=== PATIENT | male | born 1970 | race Caucasian/White ===

== ENCOUNTER 2023-10-09 16:09 | Emergency (ER) | payer OTHER, SELFPAY ==
[2023-10-09 16:09] VITALS: BMI 37.4
[2023-10-09 16:15] VITALS: BP 189/107
[2023-10-09 16:44] LABS: % Basophils 1.2 % (0-2); % Eosinophils 2.7 % (0-6); % Immature Granulocytes 0.2 % (0-0.5); % Lymphocytes 27.1 % (20.5-51.1); % Monocytes 10.9 % (1.7-9.3); % Neutrophils 57.9 % (42.2-75.2); Absolute Basophils 0.1 10^3/uL (0-0.2); Absolute Eosinophils 0.2 10^3/uL (0-0.7); Absolute Lymphocytes 2.2 10^3/uL (1.2-3.4); Absolute Monocytes 0.9 10^3/uL (0.1-0.6); Absolute Neutrophils 4.6 10^3/uL (1.4-6.5); Hematocrit 50.1 % (39.0-52.0); Hemoglobin 16.9 g/dL (13.0-18.0); Mean Corp Hgb Conc. 33.7 g/dL (33.0-37.0); Mean Corpuscular Hgb 31.5 pg (27.0-31.0); Mean Corpuscular Volume 93.3 fL (80.0-94.0); Mean Platelet Volume 9.5 fL (7.4-10.4); Nucleated Red Blood Cells % 0 % (-); Platelet Count 268 10^3/uL (130-400); Red Blood Cell Count 5.37 10^6/uL (4.70-6.10); Red Cell Dist. Width 12.3 % (11.5-14.5)
[2023-10-09 16:55] LABS: Lactic Acid 1.1 mmol/L (0.7-2.0)
[2023-10-09 16:56] LABS: ALT (SGPT) 25 U/L (0-50); AST (SGOT) 30 U/L (17-59); Albumin 4.2 g/dl (3.5-5.0); Alkaline Phosphatase 95 U/L (38-126); Blood Urea Nitrogen 19 mg/dl (9-20); Calcium 9.5 mg/dl (8.4-10.2); Carbon Dioxide 29 mmol/L (22-30); Chloride 105 mmol/L (98-107); Glucose 150 mg/dl (70-99); Potassium 4.7 mmol/L (3.5-5.1); Sodium 142 mmol/L (135-145); Total Bilirubin 0.6 mg/dl (0.2-1.3); Total Protein 7.4 g/dl (6.3-8.2); eGFR > 60.00
[2023-10-09 18:32] VITALS: BP 178/86
--- NOTE | 2023-10-09 20:06 | ED.SKININJ ---
HPI-Injury
General
Chief Complaint: Skin Problem
Source: patient
Exam Limitations: none
Time Seen by Provider: 10/09/23 18:29
Nursing documentation reviewed up to this point in time: agreed with
History of Present Illness-Injury
Is this injury a work related problem?: No
Is pt an associate of [facility]?: No
Initial Injury comments:
Patient to ED wt complaint of pain, redness, swelling to his foot. States he noticed a blister on the bottom of his foot 1 week ago. This past monday he noticed that blister had opened. Since then her reports increasing redness and swelling.
Denies fever/chills. Brought self to ED for eval.
Past History
Past History
ED Past Medical History: GERD and IDDM
ED Past Surgical History: None
Social History
Tobacco: Smoker (occasional)
Alcohol: None
Drug: None
Review of Systems
Review of Systems
Allergies reviewed?: Yes
All Other Systems: ROS reviewed and negative except as documented in HPI and ROS
Constitutional: Reports no symptoms
Musculoskeletal: Reports no symptoms
Skin: Reports other (1cm ulceration plantar surface right foot 5th MT head)
Neurological: Reports no symptoms
Psychiatric: Reports no symptoms
Skin Exam
other
Other:
1cm ulceration right plantar foot at head of 5th MT. No drainage. Redness and swelling to right foot.
Phy Exam
General Physical Exam
General Presentation: well appearing and no apparent distress
General age: appears stated age
General Skin: warm and dry
General Habitus: normal
General Mental: alert
Musculoskeletal Exam
Musculoskeletal Exam: full ROM and neuro vasc intact
Skin Exam
Skin Exam: warm/dry and other (Diabetic foot ulceration plantar surface right foot at 5th MT head. Wound culture sent.)
Psychiatric Exam
Psychiatric Exam: normal mood/affect
Course
Orders/Labs/Results
Orders:
Orders
10/09/23 16:32
Complete Blood Count/With Diff Urgent
Comprehensive Metabolic Panel Urgent
Lactic Acid Urgent
Blood Culture Urgent
NAHID Source: Blood/Venous
Specimen Description:
10/09/23 18:38
Foot, Right 3 View [CR Foot - Right Min 3 Views] Urgent
Comment:
Reason For Exam: cellulitis, plantar ulcer
10/09/23 20:01
CeFAZolin 1 GRAM [Ancef] 1 gram in 5 ml IV NOW
10/09/23 20:05
Wound Culture [Wound/Abscess/Other Culture] Urgent
NAHID Source: Foot
Specimen Description: Right
Abnormal Lab Results
10/09/23
16:32
MCH 31.5 H pg
(27.0-31.0)
Absolute Monos (auto) 0.9 H 10^3/uL
(0.1-0.6)
Monocytes % 10.9 H %
(1.7-9.3)
Glucose 150 H mg/dl
(70-99)
10/09/23 16:32
10/09/23 16:32
Vital Signs
Initial and Last Documented VS:
Initial Vital Signs
Temp Pulse Resp BP Pulse Ox
98.3 F 92 18 189/107 98
10/09/23 16:15 10/09/23 16:15 10/09/23 16:15 10/09/23 16:15 10/09/23 16:15
Last Documented Vital Signs
Temp Pulse Resp BP Pulse Ox
98.3 F 88 16 178/86 97
10/09/23 16:15 10/09/23 18:32 10/09/23 18:32 10/09/23 18:32 10/09/23 18:32
*Radiology
Radiology exam reviewed: radiology read reviewed
*Pulse Oximetry
Patient hypoxic: no
*Critical Care Note
Total Time (30-74mins, 75-104mins- exclusive of procedures): Not Applicable
Update Note
Update Note:
[facility]. Given dose of ancef in dept. Will discharge home on Keflex 500mg qid. Request that he follow upwith the wound center He will call in the AM to schedule his
appointment. He was víctorvin instructions on s/s to return to ED and he is agreable to plan
ED Attending Note
-
Portions of this chart may have been created with voice recognition software.� Occasional wrong word or��sound alike� substitutions may have occurred due to the inherent limitations of voice recognition software.
Discharge Plan
Departure
Patient Disposition: Home (Routine Discharge)
Date of Disposition: 10/09/23
Time of Disposition: 20:01
Patient with high blood pressure during this ER visit?: No
Condition: Good
Covid-19: Not Applicable
Discharge Problem:
Cellulitis of foot, Diabetic foot ulcer
Instructions: Wound Care (DC), Cellulitis (Skin Infection), Adult (DC)
Prescriptions:
New
cephalexin 500 mg capsule
500 mg PO QID 7 Days Qty: 28 0RF
Referrals:
Wound Care Center [Outside] - Tomorrow
Arlen Bowser NP [Emergency Midlevel Provider] -
UNKNOWN - PT DOES,NOT KNOW [Family Provider] -
Activity Restrictions/Additional Instructions:
Return to the emergency department immediately for fever/chills, increasing pain/redness/swelling to your foot, or for any further concerns. Call the wound care center in the AM to schedule your appointment.
Interventions
Interventions:
*Risk Screen - Suicide Last Done: 10/09/23 16:15
*General Assessment Last Done: 10/09/23 16:15
*Neglect/Abuse Screening Last Done: 10/09/23 16:15
ED- Fall Risk Assessment Last Done: 10/09/23 18:31
*ED COVID-19 Vaccine History Last Done: 10/09/23 18:31
ED-Skin Assessment Last Done: 10/09/23 18:31
Discharge Date and Time
Print Language: CHINESE
[2023-10-09] MEDS: ANCEF 5 IV (20:26)
--- NOTE | 2023-10-09 20:40 | EDRN ---
Patient foot wrapped with instructions on re-wrap
== END 2023-10-09 20:41 | disposition home or self-care (01) ==
LOC: EMR 16:09
PROVIDERS: Emergency Medicine; EMERGENCY PHYSICIAN Student in an Organized Health Care Education/Training Program
DX: L03.115 Cellulitis of right lower limb (principal); E11.621 Type 2 diabetes mellitus with foot ulcer; M79.671 Pain in right foot; K21.9 Gastro-esophageal reflux disease without esophagitis; Z79.4 Long term (current) use of insulin; F17.200 Nicotine dependence, unspecified, uncomplicated; Z91.040 Latex allergy status
CPT/HCPCS: 99283; 73630; 80053; 83605; 85025; 87040; 87070; 87205

== ENCOUNTER → 2023-12-21 18:24 | Outpatient (REF) | payer OTHER, SELFPAY | LOC: RAD 18:24 | PROVIDERS: ATTENDING PHYSICIAN Radiology Diagnostic Radiology; FAMILY PHYSICIAN Family Medicine | DX: Z13.89 Encounter for screening for other disorder (principal) | CPT/HCPCS: 70030 ==

== ENCOUNTER → 2023-12-27 14:40 | Outpatient (REF) | payer OTHER, SELFPAY | LOC: MRI 3T 14:40 | PROVIDERS: ATTENDING PHYSICIAN Podiatrist Foot & Ankle Surgery; FAMILY PHYSICIAN Family Medicine | DX: L97.512 Non-pressure chronic ulcer of other part of right foot with fat layer exposed (principal); M79.671 Pain in right foot | CPT/HCPCS: 73718 ==

== ENCOUNTER 2024-01-01 12:45 | Inpatient (IN) | payer OTHER, SELFPAY ==
[2024-01-01] VITALS (7 sets, daily range): BP systolic 113–189; BP diastolic 72–109; BMI 38.7
--- NOTE | 2024-01-01 10:05 | ED.GENMED ---
History of Present Illness
General
Chief Complaint: Musculo-Skeletal Complaint
Time Seen by Provider: 01/01/24 09:52
History of Present Illness
History of Present Illness:
53-year-old male with history of insulin-dependent diabetes presents to the emergency department for evaluation of right foot cellulitis and abscess. He had an MRI ordered by his control panel builder (Daniela Amezcua at [facility] in [place])
last week showing a soft tissue abscess as well as osteomyelitis of the fifth metatarsal. He declined to come to the hospital last week because he 'wanted antibiotics in his system'. Denies any fevers or chills.
Past History
Past History
ED Past Medical History: GERD and IDDM
ED Past Surgical History: None
Social History
Tobacco: Smoker (occasional)
Alcohol: None
Drug: None
Review of Systems
Review of Systems
Allergies reviewed?: Yes
All Other Systems: ROS reviewed and negative except as documented in HPI and ROS
Phy Exam
Physical Exam
Physical Exam:
GEN: Well appearing, NAD, WDWN
HEENT: Oral mucosa moist, no scleral icterus
Cardiac: Regular rate
Lung: No respiratory distress, no tachypnea
MSK: Diffuse erythema and swelling of the right lateral foot at the head of the fifth metatarsal. There is a superficial ulceration of the plantar aspect of the fifth metatarsal head no discharge
Skin: Good color, no pallor or jaundice, no rashes
Neuro: AO x3, moves all extremities freely
Psych: Calm, cooperative
Course
Orders/Labs/Results
Orders:
Orders
01/01/24 10:05
Complete Blood Count/With Diff Urgent
01/01/24 10:12
Piperacillin/Tazo 3.375 Gram [Zosyn] 3.375 gram in 50 ml IV NOW
01/01/24 10:24
Vancomycin [Vancocin] 2,000 mg 0.9% Sodium Chloride 500 ml [Nss] 500 ml IV NOW
01/01/24 10:35
Comprehensive Metabolic Panel Urgent
01/01/24 10:37
CR Foot - Right Min 3 Views Urgent
Comment:
Reason For Exam: 5th MT osteo
Abnormal Lab Results
01/01/24 01/01/24
10:05 10:35
MCH 31.4 H pg
(27.0-31.0)
Absolute Monos (auto) 0.8 H 10^3/uL
(0.1-0.6)
Monocytes % 12.5 H %
(1.7-9.3)
Glucose 114 H mg/dl
(70-99)
01/01/24 10:05
01/01/24 10:35
Vital Signs
Initial and Last Documented VS:
Initial Vital Signs
Temp Pulse Resp BP Pulse Ox
98.0 F 98 16 177/109 98
01/01/24 09:41 01/01/24 09:41 01/01/24 09:41 01/01/24 09:41 01/01/24 09:41
Last Documented Vital Signs
Temp Pulse Resp BP Pulse Ox
98.0 F 98 16 177/109 98
01/01/24 09:41 01/01/24 09:41 01/01/24 10:00 01/01/24 09:41 01/01/24 09:41
MDM/Problems Addressed
MDM/Problems Addressed:
53-year-old male presents with osteomyelitis of the right foot confirmed on outpatient MRI. Discussed case with podiatry, will admit for operative intervention. Empiric antibiotics started
*Critical Care Note
Total Time (30-74mins, 75-104mins- exclusive of procedures): Not Applicable
ED Attending Note
-
Portions of this chart may have been created with voice recognition software.� Occasional wrong word or��sound alike� substitutions may have occurred due to the inherent limitations of voice recognition software.
Discharge Plan
Departure
Patient Disposition: Admit
Date of Disposition: 01/01/24
Time of Disposition: 10:31
Admit to: Med/Surg
Presentation/result/management discussed w/ accepting MD/DO: Hospitalist
Discharge Problem:
Acute osteomyelitis of metatarsal bone of right foot
Prescriptions:
No Action
clindamycin HCl 300 mg Capsule
300 mg PO Q6H
Patient Comments:
01/01/24: filled 12/29/23, to take for 14 days
Theragen Tablet
1 tab PO DAILY
sildenafil 100 mg Tablet
100 mg PO DAILYPRN PRN (Reason: ed)
insulin aspart U-100 [Novolog U-100 Insulin aspart] 100 unit/mL Solution
1 sliding scale dose SC DIRECTED
Patient Comments:
01/01/24: Patient uses own insulin pump
pantoprazole 40 mg Tablet,Delayed Release (Dr/Ec)
40 mg PO DAILY
naproxen sodium [Aleve] 220 mg Tablet
440 mg PO BIDPRN PRN (Reason: mild pain)
azelastine 137 mcg (0.1 %) [place],Non-Aerosol
1 spray INTRANASAL DAILY
Visbiome 112.5 billion cell Capsule
1 cap PO DAILY
cholecalciferol (vitamin D3) [Vitamin D3] 50 mcg (2,000 unit) Tablet
50 mcg PO DAILY
turmeric 400 mg Capsule
400 mg PO DAILY
Interventions
Interventions:
*Risk Screen - Suicide Last Done: 01/01/24 09:41
*General Assessment Last Done: 01/01/24 09:57
*Neglect/Abuse Screening Last Done: 01/01/24 09:41
*ED COVID-19 Vaccine History Last Done: 01/01/24 09:52
ED-Musculoskeletal Assessment Last Done: 01/01/24 09:57
Discharge Date and Time
Print Language: PAP[place]
[2024-01-01] MEDS: ZOSYN 50 IV ×3 (10:14→23:19)
[2024-01-01 10:22] LABS: % Basophils 1.2 % (0-2); % Eosinophils 3.9 % (0-6); % Immature Granulocytes 0.3 % (0-0.5); % Lymphocytes 31.6 % (20.5-51.1); % Monocytes 12.5 % (1.7-9.3); % Neutrophils 50.5 % (42.2-75.2); Absolute Basophils 0.1 10^3/uL (0-0.2); Absolute Eosinophils 0.3 10^3/uL (0-0.7); Absolute Lymphocytes 2.1 10^3/uL (1.2-3.4); Absolute Monocytes 0.8 10^3/uL (0.1-0.6); Absolute Neutrophils 3.4 10^3/uL (1.4-6.5); Hematocrit 44.4 % (39.0-52.0); Hemoglobin 15.4 g/dL (13.0-18.0); Mean Corp Hgb Conc. 34.7 g/dL (33.0-37.0); Mean Corpuscular Hgb 31.4 pg (27.0-31.0); Mean Corpuscular Volume 90.4 fL (80.0-94.0); Mean Platelet Volume 9.2 fL (7.4-10.4); Nucleated Red Blood Cells % 0 % (-); Platelet Count 315 10^3/uL (130-400); Red Blood Cell Count 4.91 10^6/uL (4.70-6.10); Red Cell Dist. Width 13.2 % (11.5-14.5); White Blood Cell Count 6.6 10^3/uL (4.8-10.8)
[2024-01-01 11:02] LABS: ALT (SGPT) 34 U/L (0-50); AST (SGOT) 38 U/L (17-59); Albumin 3.9 g/dl (3.5-5.0); Alkaline Phosphatase 90 U/L (38-126); Blood Urea Nitrogen 14 mg/dl (9-20); Calcium 9.2 mg/dl (8.4-10.2); Carbon Dioxide 24 mmol/L (22-30); Chloride 104 mmol/L (98-107); Glucose 114 mg/dl (70-99); Potassium 4.8 mmol/L (3.5-5.1); Sodium 141 mmol/L (135-145); Total Bilirubin 0.4 mg/dl (0.2-1.3); Total Protein 6.8 g/dl (6.3-8.2); eGFR > 60.00
[2024-01-01] MEDS: VANCOCIN 540 MG IV (11:40)
--- NOTE | 2024-01-01 12:30 | HPS.HSE ---
Family Physician
-
Family Physician: Jorge Renner
Chief Complaint
-
right foot ulcer
History of Present Illness
53-year-old male past medical history of diabetes, GERD presenting to the emergency room for right foot cellulitis and abscess. He has had a ulcer on the plantar surface of his right fifth toe since October 06. This has been causing him some
discomfort and swelling for which he has seen Dr. Daniela Amezcua at [facility] in [place] who has been performing local wound care. Due to the wound healing he had MRI performed last week showing soft tissue abscess as well as
osteomyelitis of the fifth metatarsal. He denies any fevers or chills. He denies any discharge. He was started on clindamycin a few days ago and the pain of the right metatarsal region has improved.
He states that his diabetes has been well-controlled and his A1c was recently 6.9.
He smokes a few cigarettes a day some days. He drinks 2 glasses of white wine per day.
Right orbital fracture surgery, right ACL repair
Medical History
Past Medical History
Past Medical History: Reports Other (diabetes, GERD )
Past Surgical History: Reports Other (Right orbital fracture surgery, right ACL repair)
Social History
Tobacco: Smoker
Alcohol: Daily
Drug: None
Family History
Family History: Not pertinent
Allergies / Home Medications
Allergies reflects when Allergies were last updated in [employer].
Home Medications with original date entered in [employer]
Allergy/Medication List:
Allergies
Allergy/AdvReac Type Severity Reaction Status Date / Time
latex Allergy Itching Verified 01/01/24 09:45
Home Medications
Lactobac no.2-Bifidobac no.1-S. thermo 112.5 billion cell capsule (Visbiome) 1 cap PO DAILY 01/01/24
azelastine 137 mcg (0.1 %) nasal spray 1 spray intranasal DAILY 01/01/24
cholecalciferol (vitamin D3) 50 mcg (2,000 unit) tablet (Vitamin D3) 50 mcg PO DAILY 01/01/24
clindamycin HCl 300 mg capsule 300 mg PO Q6H 01/01/24
insulin aspart U-100 100 unit/mL subcutaneous solution (Novolog U-100 Insulin aspart) 1 sliding scale dose SC DIRECTED 01/01/24
naproxen sodium 220 mg tablet (Aleve) 440 mg PO BIDPRN PRN mild pain 01/01/24
pantoprazole 40 mg tablet,delayed release 40 mg PO DAILY 01/01/24
sildenafil 100 mg tablet 100 mg PO DAILYPRN PRN ed 01/01/24
therapeutic multivitamin 1 tab PO DAILY 01/01/24
turmeric 400 mg capsule 400 mg PO DAILY 01/01/24
Review of Systems
-
History Source: Patient
A 12 point ROS was completed and negative except as noted: Yes
Constitutional: Reports No Symptoms
EENT: Reports No Symptoms
Respiratory: Reports No Symptoms
Cardiac: Reports No Symptoms
Abdomen/GI: Reports No Symptoms
: Reports No Symptoms
Musculoskeletal: Reports No Symptoms
Skin: Reports See HPI
Neurological: Reports No Symptoms
Endocrine: Reports No Symptoms
Hematologic/Lymphatic: Reports No Symptoms
Psych: Reports No Symptoms
Physical Exam
Vital Signs
Vital Signs
Temp Pulse Resp BP Pulse Ox
98 F 81 16 171/88 97
01/01/24 12:00 01/01/24 11:49 01/01/24 11:49 01/01/24 11:49 01/01/24 11:49
Physical Exam
General: Well Developed, Well Nourished and No Apparent Distress
HEENT: NormoCephalic, Moist mucous membranes and Atraumatic
Respiratory: Clear
Cardiac: S1/S2 and Regular Rhythm; No Murmur or Rub
GI: Soft, Non Tender, Non Distended and Normal Bowel Sounds; No Organomegaly
Rectal: Deferred by Provider
Musculoskeletal: No Clubbing, No Cyanosis and No Edema
Skin: Other (right foot metatarsal ulcer, erythema of 5th metatarsal and ankle swelling ); No Rash
Neuro: Nonfocal/grossly intact
Laboratory Results
-
01/01/24 10:05
01/01/24 10:35
Laboratory Results
Total Bilirubin 0.4 mg/dl (0.2-1.3) 01/01/24 10:35
AST 38 U/L (17-59) 01/01/24 10:35
ALT 34 U/L (0-50) 01/01/24 10:35
Alkaline Phosphatase 90 U/L (38-126) 01/01/24 10:35
Data Reviewed
-
Lab Data: Labs Reviewed by me
Old Records: Reviewed
Impression/Plan
-
IMPRESSION:
PLAN:
# Acute osteomyelitis of right fifth metatarsal head with 2 cm abscess
# Diabetic ulcer
-X-ray shows osteomyelitis of the right fifth metatarsal head
-MRI last week shows acute osteomyelitis of the distal fifth metatarsal and base of the proximal phalanx of the fifth toe, 2 cm abscess dorsal to the fifth metatarsal head, ulcer lateral to the fifth metatarsal head
-Vancomycin/Zosyn
-Podiatry consulted
-Vascular consulted
-ID consulted
Type 2 diabetes
-Insulin sliding scale
GERD
-Continue Protonix
Erectile dysfunction
Daily alcohol use
Occasional smoker
Full code
DVT prophylaxis�heparin
Diabetic diet
--- NOTE | 2024-01-01 12:41 | CON.ID ---
Consultation
-
Date/Time Consultation Requested: 01/01/2024 1230
Date/Time Consultation Performed: 01/01/2024 1245
Requesting Provider: Dr. Colby Gutierrez
Performing Provider: Dr. Sherly Barker
Reason for Consultation: foot osteo/abscess
Chief Complaint / Past History
Chief Complaint
Foot infection
History of Present Illness
53 year old male with history of DM, ,neuropathy came to ED today due to toe osteo. He developed an ulcer at be plantar right 5th toe at the end of September. 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 He follows with a livestock nutrition territory manager.
The wound was not healing and he developed second wound which led to MRI last week. MRI showed right 5th toe osteo from met head to distal shaft. Also 2 cm abscess on toe. He refused hospitalization last week and was started on clindamycin. No
fevers or chills. No nausea/diarrhea.
Past History
Additional Past Medical History:
DM
Neuropathy
GERD
Erectile dysfunction
Open reduction and internal fixation of R zygoma fracture
Allergy History:
latex Allergy (Verified 01/01/24 09:45)
Itching
Medications Reviewed: Yes
Current Antibiotics:
Vancomycin
pip/tazo
Social History
Tobacco: Smoker (Occasional cigarettes)
Alcohol: Daily (2 glasses wine per day)
Drug: None
Employment: Employed
Family History
Family History: Not Pertinent
Review of Systems
Review of Systems
General: Negative Fever or Chills
HEENT: Negative Sinus Problems or Headache
Cardiovascular: Negative Chest Pain or Dyspnea
Respiratory: Negative Dyspnea or Cough
Gasteroenterology: Other (no diarrhea); Negative Nausea or Vomiting
Genital / Urological: Negative Dysuria or Flank Pain
Endocrine: Negative Weakness
Neurological: Negative Dizziness
All systems: All other systems were reviewed and were negative
Vital Signs
Temp Pulse Resp BP Pulse Ox
98 F 81 16 171/88 97
01/01/24 12:00 01/01/24 11:49 01/01/24 11:49 01/01/24 11:49 01/01/24 11:49
Physical Exam
Physical Exam
Constitutional: No Acute Distress and Comfortable
Eyes: No Conjunctival Hemorrhage and Sclera Anicteric
Cardiovascular: Regular Rate and S1/S2
Pulmonary: Clear
Gastrointestinal: Non Tender, Non Distended and Normal Bowel Sounds
Genito-Urinary: Negative CVA Tenderness
Extremities: Edema (right foot to ankle) and Other
Wound: Other (Right 5t toe with dry wound at base of met head, + erythema and fluctuance over distal metatarsal)
Neurological: AO x 3
Lab / Diagnostic Study Results
01/01/24 10:05
01/01/24 10:35
Abs Immat Gran (auto) 0.0 10^3/uL (0-0.05) 01/01/24 10:05
Absolute Neuts (auto) 3.4 10^3/uL (1.4-6.5) 01/01/24 10:05
Absolute Lymphs (auto) 2.1 10^3/uL (1.2-3.4) 01/01/24 10:05
Absolute Monos (auto) 0.8 10^3/uL (0.1-0.6) H 01/01/24 10:05
Absolute Basos (auto) 0.1 10^3/uL (0-0.2) 01/01/24 10:05
Immature Gran % 0.3 % (0-0.5) 01/01/24 10:05
Neutrophils % 50.5 % (42.2-75.2) 01/01/24 10:05
Lymphocytes % 31.6 % (20.5-51.1) 01/01/24 10:05
Monocytes % 12.5 % (1.7-9.3) H 01/01/24 10:05
Eosinophils % 3.9 % (0-6) 01/01/24 10:05
Basophils % 1.2 % (0-2) 01/01/24 10:05
Microbiology Results
01/01/24 XRAY: Findings compatible with acute osteomyelitis of the RIGHT fifth metatarsal head.
12/27/23 MRI LE: ACUTE OSTEOMYELITIS in the distal 5th metatarsal (metatarsal head, neck, and distal shaft) and the base of the proximal phalanx of the 5th toe.
2.0 cm ABSCESS dorsal to the 5th metatarsal head. Ulcer lateral to the 5th metatarsal head.
Assessment / Plan
# Right 5th metatarsal acute osteo and abscess
# Diabetic foot infection
- Arterial duplex study pending
- Recommend surgical resection, I+D, deep cultures, and bone biopsies.
- Can continue Vancomycin and Zosyn for now.
--- NOTE | 2024-01-01 13:03 | CON.VAS ---
Addendum entered and electronically signed by Julito Perez III, MD 01/02/24 15:21:
This patient was seen and examined with STEPHEN Robb. I agree with the history and physical exam as well as the assessment and plan. I have the following additions:
Right foot wound
Palpable pedal pulses
Noninvasive arterial studies reviewed personally. ABIs and TBI's are within normal limits. Arterial duplex examination reveals multiphasic waveforms in the right lower extremity with no focal velocity elevations to suggest significant stenosis.
Okay to proceed with podiatric surgical intervention. Lower extremity arterial studies suggest adequate perfusion for wound healing.
Call with questions or concerns
Signed:
Julito Perez III, MD
[facility]
[phone] (qqof)
Original Note:
Consultation
Consultation Request
Performing Provider: Rosetta MITCHELL
Reason for Consultation: Nonhealing right foot wound
Medical History
-
Chief Complaint: Nonhealing right foot wound
History of Present Illness:
53-year-old male with past medical history significant for diabetes presents to the ER today at the request of his clinical dental technician Dr. Yen for nonhealing right foot wound. Patient states his wound began in September of this year and has been slowly healing
since then. Over a week ago his clinical dental technician ordered an MRI which suggested osteomyelitis. At that time patient was referred to the ER for IV antibiotics for which the patient declined. The right foot became more painful to walk on which led the
patient to presenting today. 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 Patient denies history of CAD, PAD, claudication, hypertension, high cholesterol. Patient denies family history of CAD, diabetes, PAD. Patient
admits to chronic peripheral neuropathy from his diabetes. He denies cramping in the calves, heaviness in the legs with walking. Patient states he walks at least 30,000 steps a day due to his job without issue aside from the wound being
uncomfortable.
On exam patient has a small dried scab on the lateral right foot near the fifth toe. There is no open wound at this time. All other skin intact. Bounding +2 pulses bilateral femoral, popliteal, DP, PT. bilateral feet warm and pink. Trace edema
at the ankles.
Past Medical History
Past Medical History: IDDM and Other (Erectile dysfunction)
Past Surgical History: None
Social History
Tobacco: Smoker (Occasionally)
Alcohol: None
Drug: None
Employment: Employed
Family History
Family History: Reviewed & Not Pertinent
Allergies / Home Medications
Allergy/AdvReac Type Severity Reaction Status Date / Time
latex Allergy Itching Verified 01/01/24 09:45
�Medication �Instructions �Recorded �Confirmed �Type
Lactobac no.2-Bifidobac no.1-S. 1 cap PO DAILY 01/01/24 01/01/24 History
thermo 112.5 billion cell capsule
(Visbiome)
azelastine 137 mcg (0.1 %) nasal 1 spray intranasal DAILY 01/01/24 01/01/24 History
spray
cholecalciferol (vitamin D3) 50 50 mcg PO DAILY 01/01/24 01/01/24 History
mcg (2,000 unit) tablet (Vitamin
D3)
clindamycin HCl 300 mg capsule 300 mg PO Q6H 01/01/24 01/01/24 History
insulin aspart U-100 100 unit/mL 1 sliding scale dose SC DIRECTED 01/01/24 01/01/24 History
subcutaneous solution (Novolog
U-100 Insulin aspart)
naproxen sodium 220 mg tablet 440 mg PO BIDPRN PRN mild pain 01/01/24 01/01/24 History
(Aleve)
pantoprazole 40 mg tablet,delayed 40 mg PO DAILY 01/01/24 01/01/24 History
release
sildenafil 100 mg tablet 100 mg PO DAILYPRN PRN ed 01/01/24 01/01/24 History
therapeutic multivitamin 1 tab PO DAILY 01/01/24 01/01/24 History
turmeric 400 mg capsule 400 mg PO DAILY 01/01/24 01/01/24 History
Review of Systems
-
History Source: Patient
All other systems: Negative unless noted
Constitutional: Reports No Symptoms
EENT: Reports No Symptoms
Respiratory: Reports No Symptoms
Cardiac: Reports No Symptoms
Vascular: Denies Leg Pain / Claudication
Abdomen/GI: Reports No Symptoms
: Reports No Symptoms
Musculoskeletal: Reports No Symptoms
Skin: Reports Other (Wound to the right foot)
Neurological: Reports No Symptoms
Endocrine: Reports No Symptoms
Physical Exam
Vital Signs
Temp Pulse Resp BP Pulse Ox
98 F 81 16 171/88 97
01/01/24 12:00 01/01/24 11:49 01/01/24 11:49 01/01/24 11:49 01/01/24 11:49
Lab Results
01/01/24 10:05
01/01/24 10:35
Physical Exam
General: No Apparent Distress
HEENT: Normocephalic and Atraumatic
Respiratory: Non Labored Respirations
Cardiac: Negative JVD
GI: Soft and Non Tender
Musculoskeletal: No Clubbing, No Cyanosis and Edema (Trace at the ankles)
Skin: Warm, Dry and Other (1 cm dry scab to the right lateral foot)
Neuro: Awake, Alert and Oriented
Psych: Calm
Pulses: Bilateral Femoral: +2, Bilateral Popliteal: +2, Bilateral Dorsalis Pedis: +2 and Bilateral Posterior Tibial: +2
Assessment / Plan
-
53-year-old male with small nonhealing right lateral foot wound, sent in today by podiatry for osteomyelitis finding on MRI
Plan:
-IV antibiotics
-Local wound care
-Surgical plans per podiatry
-Lower extremity arterial duplex with YUSUF and TBI pending, will follow-up with patient once scan is complete
Data Reviewed
-
Labs: Labs Reviewed by me
[2024-01-01 16:32] LABS: Glucose - Point of Care 108 mg/dl (70-99)
--- NOTE | 2024-01-01 17:15 | W.PN.POD ---
Today's Communication
Today's Communication
plan for Or tomorrow
full consult dictated
Assessment / Plan
-
osteo right 5th met head/prox phal---stable for now
npo after midnight
plan for Or tomorrow
consent read and signed
d/w pt about complications/wound healing, need for further sx
Subjective
Chief Complaint
pt seen for chronic ulcer right foot. sees dpm at [facility]
ulcer since end of september
pt on clinda at outpt
full consult dictated
Subjective
vasc intact
derm ulcer right foot, probe to bone and dorsal met
+ osteo on xrays and mri 5th met and base prox phal
Objective
Temp Pulse Resp BP Pulse Ox
99.2 F 82 18 189/105 97
01/01/24 16:26 01/01/24 16:26 01/01/24 16:26 01/01/24 16:26 01/01/24 16:26
01/01/24 10:05
01/01/24 10:35
Vital Signs and Lab results were reviewed.
--- NOTE | 2024-01-01 17:39 | PHA.VAN.IN ---
Assessment
- Assessment
Renal Function: Appears similar to baseline (10/09/23 SCR = 0.9)
Concomitant Antimicrobials: ZOSYN
- Previous Dosing Experience
Previous Regimen: NONE
AUC Dosing Plan
- Dosing Variables
Dosing Weight (kg): 125
Dosing CrCl (ml/min): 100
Vd coefficient (L/kg): 0.6
- Empiric Dosing
Initial / Loading Dose: 2GM
Maintenance Regimen: 1500MG IV Q12H
Estimated AUC (mcg*h/mL): 498
Estimated Peak (mcg*h/mL): 30.8
Estimated Trough (mcg/ml): 12.3
Estimated Half Life (H): 7.9
Pharmacokinetics Vancomycin I
- -
Patient Age: 53
Patient Sex: Male
Vancomycin Day #: 1
Indication: Bone And Joint (DIABETIC FOOT INFECTION)
Requesting Provider: HARLEY
Height / Weight:
Height 6 ft
Actual Weight 125 kg
Pertinent Past Medical History: DM
- Vital Signs / Lab Results
Temp Pulse Resp BP Pulse Ox
99.2 F 82 18 189/105 97
01/01/24 16:26 01/01/24 16:26 01/01/24 16:26 01/01/24 16:26 01/01/24 16:26
Lab Results - Hematology
01/01/24
10:05
WBC 6.6
Lab Results - Chemistry
01/01/24 01/01/24
10:05 10:35
BUN Cancelled 14
Creatinine Cancelled 0.8
Estimated Creat Clear Cancelled
Albumin Cancelled 3.9
[2024-01-01] MEDS: HEPARIN 5000 UNITS SC (20:34)
[2024-01-01 22:38] LABS: Glucose - Point of Care 96 mg/dl (70-99)
[2024-01-01] MEDS: FLUSH (NSS) 2 FLUSH IV (23:19)
[2024-01-02] VITALS (11 sets, daily range): BP systolic 141–190; BP diastolic 68–111
[2024-01-02] MEDS: ZOSYN 50 IV ×3 (05:00→23:24)
[2024-01-02] MEDS: FLUSH (NSS) 1 FLUSH IV ×3 (06:09→20:24)
[2024-01-02] MEDS: VANCOCIN 300 ML IV ×2 (06:09→20:21)
[2024-01-02] MEDS: VANCOCIN 300 MG IV ×2 (06:09→20:21)
[2024-01-02 07:14] LABS: Glucose - Point of Care 135 mg/dl (70-99)
[2024-01-02 07:21] LABS: % Basophils 1.5 % (0-2); % Eosinophils 3.8 % (0-6); % Immature Granulocytes 0.4 % (0-0.5); % Lymphocytes 25.6 % (20.5-51.1); % Neutrophils 56.7 % (42.2-75.2); Absolute Basophils 0.1 10^3/uL (0-0.2); Absolute Eosinophils 0.3 10^3/uL (0-0.7); Absolute Monocytes 0.9 10^3/uL (0.1-0.6); Absolute Neutrophils 4.5 10^3/uL (1.4-6.5); Hematocrit 45.4 % (39.0-52.0); Hemoglobin 15.3 g/dL (13.0-18.0); Mean Corp Hgb Conc. 33.7 g/dL (33.0-37.0); Mean Corpuscular Hgb 30.6 pg (27.0-31.0); Mean Corpuscular Volume 90.8 fL (80.0-94.0); Mean Platelet Volume 9.2 fL (7.4-10.4); Nucleated Red Blood Cells % 0 % (-); Platelet Count 323 10^3/uL (130-400); Red Cell Dist. Width 13.1 % (11.5-14.5); White Blood Cell Count 7.9 10^3/uL (4.8-10.8)
[2024-01-02 07:43] LABS: ALT (SGPT) 30 U/L (0-50); AST (SGOT) 34 U/L (17-59); Albumin 3.9 g/dl (3.5-5.0); Alkaline Phosphatase 90 U/L (38-126); Blood Urea Nitrogen 17 mg/dl (9-20); Carbon Dioxide 26 mmol/L (22-30); Chloride 99 mmol/L (98-107); Estimated Creatinine Clearance > 125 ml/min; Glucose 128 mg/dl (70-99); Potassium 4.1 mmol/L (3.5-5.1); Sodium 139 mmol/L (135-145); Total Bilirubin 0.8 mg/dl (0.2-1.3); Total Protein 6.9 g/dl (6.3-8.2); eGFR > 60.00
--- NOTE | 2024-01-02 08:34 | W.PN.UPDATE ---
Update Note
Progress Note Update
Patient seen at bedside exam Dr. Perez. Patient resting comfortably with no complaints at this time. Noninvasive studies reviewed with patient. We feel patient should have sufficient blood flow to heal planned podiatry procedure today.
Patient can follow-up with our office as an outpatient. Call with questions/concerns
[2024-01-02] MEDS: THERAGRAN 1 TABLET PO (08:49)
[2024-01-02] MEDS: PROTONIX 40 MG PO (08:49)
[2024-01-02] MEDS: VISBIOME 1 CAP PO (08:49)
[2024-01-02] MEDS: VITAMIN D3 (cholecalciferol) 50 MCG PO (08:49)
[2024-01-02] MEDS: HEPARIN 5000 UNITS SC ×2 (08:50→23:17)
[2024-01-02] MEDS: PATIENT'S OWN INSULIN PUMP 2.3 UNITS SC ×2 (08:50→12:21)
[2024-01-02] MEDS: APRESOLINE 5 MG IV (08:53)
--- NOTE | 2024-01-02 09:13 | PHA.VAN.FU ---
Vancomycin Assessment / Plan
- Assessment
Renal Function: Stable
WBC's are: WNL
In the past 24 hrs, patient has been: Afebrile
Concomitant Antimicrobials: piperacillin/tazobactam
- Dosing Plan
Continue: Vanc 1500mg Q12H
- Monitoring Plan
No level(s) ordered at this time: consider levels in next few days
- Follow Up
Pharmacy will continue to follow.
Vancomycin Follow UP
- -
Patient Age: 53
Patient Sex: Male
Vancomycin Day #: 2
Indication: Bone And Joint
Requesting Provider: Dr. Santiago / Mj
Pertinent Antimicrobial Allergies:
no pertinent antibiotic allergies
Height / Weight:
Height 5 ft 11 in
Actual Weight 125.9 kg
Pertinent Past Medical History: DM, BMI ~39
- Vital Signs / Lab Results
Temp Pulse Resp BP Pulse Ox
99 F 67 20 190/110 97
01/02/24 07:42 01/02/24 07:42 01/02/24 07:42 01/02/24 08:53 01/02/24 07:42
Lab Results - Hematology
01/01/24 01/02/24
10:05 06:03
WBC 6.6 7.9
Lab Results - Chemistry
01/01/24 01/01/24 01/02/24
10:05 10:35 06:03
BUN Cancelled 14 17
Creatinine Cancelled 0.8 0.9
Estimated Creat Clear Cancelled > 125
Albumin Cancelled 3.9 3.9
--- NOTE | 2024-01-02 09:59 | W.PN.ID1 ---
Date of Service
Date of Service: January 02, 2024
Today's Communication
Continue Vanco, Zosyn.
Assessment / Plan
# Right 5th metatarsal acute osteo and abscess
# Diabetic foot infection
- Arterial duplex normal YUSUF
- For surgical resection, I+D, deep cultures, and bone biopsies.
- Continue Vancomycin and Zosyn for now.
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
DM
Neuropathy
GERD
Erectile dysfunction
Open reduction and internal fixation of R zygoma fracture
Chief Complaint
-: Other (diabetic foot)
Subjective / Review of Systems
No complaints today.
Vital Signs / Physical Exam
Vital Signs
Vital Signs
Temp Pulse Resp BP Pulse Ox
99 F 67 20 187/109 97
01/02/24 07:42 01/02/24 07:42 01/02/24 07:42 01/02/24 09:37 01/02/24 07:42
Physical Exam
Constitutional: No Acute Distress and Comfortable
Pulmonary: Clear
Gastrointestinal: Non Tender, Non Distended and Normal Bowel Sounds
Wound: Other (right foot dressing dry)
Neurological: AO x 3
Objective Data
Lab Data
Lab Results
01/02/24 06:03
01/02/24 06:03
Estimated Creat Clear > 125 ml/min 01/02/24 06:03
Total Bilirubin 0.8 mg/dl (0.2-1.3) 01/02/24 06:03
AST 34 U/L (17-59) 01/02/24 06:03
ALT 30 U/L (0-50) 01/02/24 06:03
Alkaline Phosphatase 90 U/L (38-126) 01/02/24 06:03
Most recent labs reviewed.
01/01/24 XRAY: Findings compatible with acute osteomyelitis of the RIGHT fifth metatarsal head.
12/27/23 MRI LE: ACUTE OSTEOMYELITIS in the distal 5th metatarsal (metatarsal head, neck, and distal shaft) and the base of the proximal phalanx of the 5th toe.
2.0 cm ABSCESS dorsal to the 5th metatarsal head. Ulcer lateral to the 5th metatarsal head.
01/01/24 Arterial study: ABIs and TBIs are within normal limits bilaterally. Arterial duplex examination reveals multiphasic waveforms from the common femoral artery through the popliteal artery bilaterally. There is no focal velocity elevation on
the RIGHT to suggest significant stenosis. A focal velocity elevation is identified on the LEFT at 207 cm/s (ratio 1.9) suggesting a mild stenosis at this location.
[2024-01-02 10:09] LABS: Glycohemoglobin (HgbA1c) 6.5 % (4.0-5.6)
[2024-01-02] MEDS: ATIVAN 0.5 MG PO (11:28)
[2024-01-02 12:18] LABS: Glucose - Point of Care 124 mg/dl (70-99)
--- NOTE | 2024-01-02 12:35 | PN.DE.MGMTRT ---
Insulin Management
- -
01/02/2024 Diabetes Management Consult
Patient admitted 12/31 with R foot cellulitis/abscess, osteo r 5th met head/prox phal. PMH GERD, Diabetes for 20 years. Prior to admission patient was using a Tandem tslim x 2 insulin pump with control IQ, Autosoft 90 infusion sets, and DexCom G6.
A1C 6.5%, cr .8, eGFR >60.
Patient is awake alert and oriented resting in bed. NPO for OR later today.
Insulin pump settings as follows:
Basal 2.3 per hour all day = 55.2 units of basal insulin
I:CHO ratio 1: 16
Correction factor 1: 14.
Patient is capable of maintaining insulin pump to maintain basal rates and bolus when appropriate. Instructed patient on use of insulin pump bedside worksheet, he is agreeable to fill in doses of insulin he takes.
Will follow.
Diabetes History
- -
Type of Diabetes: 2 requiring insulin
Pre-Admission Diabetes Regimen
01/02/24
06:03
Creatinine 0.9
Lab Results
Hemoglobin A1c 6.5 % (4.0-5.6) H 01/02/24 06:03
Insulin Pump Settings
IP Diabetes Regimen
01/01/24 01/01/24 01/02/24
16:30 22:35 06:03
Glucose 128 H
POC Glucose 108 H 96
01/02/24 01/02/24
07:12 12:16
Glucose
POC Glucose 135 H 124 H
Meal type: Dinner
Amount consumed: 100%
Patient Education
--- NOTE | 2024-01-02 14:29 | PTCARENOTE ---
at 0820 patient is very anxious regarding surgery today. yesterday patient's b/p ranged from 113/72 to 189/105. patient is a smoker and refusing nicotine patch. Currently, B/P is 190/111. Nguyen Pham notified and came to see patient. at
0853, PRN Hydralazine administered as ordered. at 0938, b/p rechecked at 187/109 and notified Nguyen Pham and 1039 communicated to give him Ativan, but no orders for Ativan. requested Ativan order from her. at 1109, Ativan 0.5mgs PO now
ordered. at 1302, b/p 197/109. at 1400, Nguyen Pham placed order for hydralazine 10mg IV q4h
Stop if sbp reading is less than 150. will continue to monitor effectiveness.
--- NOTE | 2024-01-02 14:37 | CM ---
Patient seen at bedside earlier today with physician and residents. Patient for OR today and expressed anxiety about surgery. All questions answered by physician. Patient lives with family in a 2 story home with a cane as his only DME. Patient will
need a prescription for return to work. Patient PCP is Dr. Aly and he uses [facility] for medications. Patient stated that he goes to a number of [facility] depending upon where he is working. Patient will need PT/OT for assessment to
clarify discharge needs. Patient may need IV antibiotics pending physician assessment. CM will continue to follow for discharge planning needs.
Plan; home with VN vs home with no needs; watch for IV antibiotic needs/ PT/OT assessment and recommendations
--- NOTE | 2024-01-02 15:48 | W.PN.HOSP.TC ---
Addendum entered and electronically signed by Rain Graham MD 01/02/24 18:15:
I saw and evaluated the patient independently. I reviewed the resident�s note and agree with findings and plan as documented by Dr. Pham.
GENERAL: well developed, well nourished, male in no apparent distress
HEENT: NC/AT--no O2 requirements
HEART: regular rate and rhythm, +S1, +S2
LUNGS : clear to auscultation bilaterally
ABDOM: soft, nontender, nondistended, + bowel sounds
EXT: no cyanosis, clubbing, or edema--right foot with small less than dime sized area on lateral side near 5th phalanges on right foot with no obvious drainage
Acute osteomyelitis of right fifth metatarsal head with 2 cm abscess from diabetic foot ulcer likely caused by neuropathy--ED foot x-ray actually confirms osteo--apprec podiatry--cont vanco/zosyn--consult ID--await OR cultures (today)--MRI last week
shows acute osteomyelitis of the distal fifth metatarsal and base of the proximal phalanx of the fifth toe, 2 cm abscess dorsal to the fifth metatarsal head, ulcer lateral to the fifth metatarsal head--apprec vascular--no abnormalities of ABIs
Type 2 diabetes--pt has insulin pump--apprec DM [employer]--Insulin sliding scale
essential HTN?--pt without history and on no meds BUT BP running high--cont standing hydralazine and follow BPs--maybe due to anxiety over possible surgery?--may need BP meds at d/c
GERD--Continue Protonix
Daily alcohol use--watch for DTs--BP increased
Occasional smoker
Full code
DVT prophylaxis�heparin
Original Note:
Today's Communication/Plan
-
Debridement of Wound/send cultures
Wound care
Continue IV antibiotics
Blood pressure monitoring
Assessment / Plan
Assessment / Plan
IMPRESSION
A 53 year old male with PMH of Diabetes and GERD admitted for management of Acute Osteomyelitis involving 5th metatarsal.Anxious . High Blood pressure readings.
ASSESSMENT/PROBLEM LIST
Acute Osteomyelitis
Diabetes Mellitus
High blood pressure readings
PLAN
Acute Osteomyelitis
Patient has an ulcer on plantar surface of right foot since 2023
wound has discharge , MRI done on Dec showed bone involvement
Debridement scheduled today(01/01)
Arterial study report follow-up done(WNL)
work on wound care once done with procedure
Wound cultures
Follow_up
Continue IV antibiotics
Diabetes Mellitus
Well controlled Hba1c 6.9
Continue insulin pump
Diabetes management consultation
Insulin pump settings as follows:
Basal 2.3 per hour all day = 55.2 units of basal insulin
I:CHO ratio 1: 16
Correction factor 1: 14.
Patient is capable of maintaining insulin pump to maintain basal rates and bolus when appropriate. Instructed patient on use of insulin pump bedside worksheet, he is agreeable to fill in doses of insulin he takes.
Will follow.
Neuropathy
Diabetic foot
monitor Blood sugar levels
High blood pressure readings
Patient Anxious about his procedure
having high blood pressure readings
Start Hydralazine scheduled every 4 hours
STOP if SBP less than 150
continue monitoring blood pressure
ID consultation
I+D, deep cultures, and bone biopsies.
- Continue Vancomycin and Zosyn for now.
Full code
DVT prophylaxis�heparin
Diabetic diet
Anticipated Discharge: 24 - 48 hours
Subjective/Interval History
-
Date of Service: January 02, 2024
Anxious regarding his foot debridement today.Feels overall well.
Objective Data
-
Labs:
Laboratory Results
01/02/24
06:03
WBC 7.9
Hgb 15.3
Hct 45.4
Plt Count 323
Sodium 139
Potassium 4.1
Chloride 99
Carbon Dioxide 26
BUN 17
Creatinine 0.9
Glucose 128 H
Calcium 9.0
Total Bilirubin 0.8
AST 34
ALT 30
Alkaline Phosphatase 90
Vital Signs:
Vital Signs
Temp Pulse Resp BP Pulse Ox
99.3 F 72 18 190/106 97
01/02/24 15:42 01/02/24 15:42 01/02/24 15:42 01/02/24 15:42 01/02/24 15:42
I&O
01/01/24 01/02/24 01/03/24
06:59 06:59 06:59
Intake Total 820 / 820
Balance 820 / 820
Review of Systems
-
All other systems: Reviewed and negative
Physical Exam
-
General: Well Developed, Well Nourished and Comfortable
HEENT: Normocephalic, Atraumatic, Moist Mucous Membranes, Anicteric and No Ptosis
Respiratory: Clear to Auscultation
Cardiac: Regular Rhythm and S1/S2
GI: Soft, Nontender and Normal Bowel Sounds
Genito-urinary: No Costovertebral Tender
Musculoskeletal: No Clubbing, No Cyanosis and No Edema
Skin: Warm and Ulcers (right foot, plantar surface below 5th metatarsal)
Neuro: Awake, Alert and Oriented
Hematologic / Lymphatic: No Lymphadenopathy
Psych: Calm
[2024-01-02] MEDS: APRESOLINE 10 MG IV ×2 (16:30→19:47)
[2024-01-02] MEDS: ZOSYN IV (18:14)
[2024-01-02 18:19] LABS: Glucose - Point of Care 97 mg/dl (70-99)
--- NOTE | 2024-01-02 19:06 | W.PN.UPDATE ---
Update Note
Progress Note Update
pt seen in RR
no pain
cft intact
dressing cdi
a/ps/p I&D, 5th met reseection, resection base prox phal right foot---stable
wound closed and packed out plantarly
bone sent to path, 5th met head, prox phal, proximal margin
cont abx
nwb right foot
[2024-01-02 19:24] LABS: Glucose - Point of Care 99 mg/dl (70-99)
[2024-01-02] MEDS: PT'S OWN INSULIN PUMP - NovoLOG SC ×2 (20:34→23:22)
[2024-01-02 22:30] LABS: Glucose - Point of Care 137 mg/dl (70-99)
[2024-01-02] MEDS: APRESOLINE IV (23:23)
[2024-01-02] MEDS: NAPROSYN 500 MG PO (23:45)
[2024-01-03] VITALS (7 sets, daily range): BP systolic 140–163; BP diastolic 74–88
[2024-01-03] MEDS: APRESOLINE 10 MG IV ×3 (03:50→11:43)
[2024-01-03] MEDS: ZOSYN 50 IV ×3 (05:51→17:06)
[2024-01-03 06:04] LABS: % Basophils 0.5 % (0-2); % Immature Granulocytes 0.2 % (0-0.5); % Lymphocytes 9.9 % (20.5-51.1); % Monocytes 9.7 % (1.7-9.3); % Neutrophils 79.7 % (42.2-75.2); Absolute Lymphocytes 0.8 10^3/uL (1.2-3.4); Absolute Monocytes 0.8 10^3/uL (0.1-0.6); Absolute Neutrophils 6.4 10^3/uL (1.4-6.5); Hemoglobin 15.2 g/dL (13.0-18.0); Mean Corp Hgb Conc. 34.5 g/dL (33.0-37.0); Mean Corpuscular Volume 92.6 fL (80.0-94.0); Nucleated Red Blood Cells % 0 % (-); Platelet Count 272 10^3/uL (130-400); Red Blood Cell Count 4.75 10^6/uL (4.70-6.10); Red Cell Dist. Width 12.8 % (11.5-14.5)
[2024-01-03 06:28] LABS: Magnesium 2.1 mg/dl (1.6-2.3)
[2024-01-03] MEDS: VANCOCIN 300 ML IV ×2 (06:43→19:04)
[2024-01-03] MEDS: VANCOCIN 300 MG IV ×2 (06:43→19:04)
--- NOTE | 2024-01-03 07:19 | PN.DE.MGMTRT ---
Insulin Management
- -
01/03/2024 Diabetes Management Consult Follow up
Patient admitted 12/31 with R foot cellulitis/abscess, osteo r 5th met head/prox phal. PMH GERD, Diabetes for 20 years. Prior to admission patient was using a Tandem tslim x 2 insulin pump with control IQ, Autosoft 90 infusion sets, and DexCom G6.
A1C 6.5%, cr .8, eGFR >60.
Patient is awake alert and oriented resting in bed. POD 1 s/p 5th metatarsal resection. Patient continues with insulin pump, no changes to pump settings.
Glucose range 97 to 135.
Insulin pump settings as follows:
Basal 2.3 per hour all day = 55.2 units of basal insulin
I:CHO ratio 1: 16
Correction factor 1: 14.
Patient is capable of maintaining insulin pump to maintain basal rates and bolus when appropriate. Instructed patient on use of insulin pump bedside worksheet, he is agreeable to fill in doses of insulin he takes.
Will follow.
Diabetes History
- -
Type of Diabetes: 2 requiring insulin
Pre-Admission Diabetes Regimen
01/02/24
06:03
Creatinine 0.9
Lab Results
Hemoglobin A1c 6.5 % (4.0-5.6) H 01/02/24 06:03
Insulin Pump Settings
IP Diabetes Regimen
01/02/24 01/02/24 01/02/24
06:03 12:16 18:18
Glucose 128 H
POC Glucose 124 H 97
01/02/24 01/02/24
19:22 22:29
Glucose
POC Glucose 99 137 H
Patient Education
[2024-01-03 07:35] LABS: Glucose - Point of Care 121 mg/dl (70-99)
[2024-01-03] MEDS: NAPROSYN 500 MG PO (07:48)
[2024-01-03] MEDS: PROTONIX 40 MG PO (07:48)
[2024-01-03] MEDS: VISBIOME 1 CAP PO (07:48)
[2024-01-03] MEDS: PT'S OWN INSULIN PUMP - NovoLOG 10.71 UNIT SC (07:48)
[2024-01-03] MEDS: VITAMIN D3 (cholecalciferol) 50 MCG PO (07:49)
[2024-01-03] MEDS: HEPARIN 5000 UNITS SC (07:49)
[2024-01-03] MEDS: THERAGRAN 1 TABLET PO (07:50)
--- NOTE | 2024-01-03 08:52 | PHA.VAN.FU ---
Vancomycin Assessment / Plan
- Assessment
Renal Function: Stable
WBC's are: WNL
In the past 24 hrs, patient has been: Afebrile
Concomitant Antimicrobials: piperacillin/tazobactam
- Dosing Plan
Continue: Vanc 1500mg Q12H
- Monitoring Plan
No level(s) ordered at this time: consider levels in next few days
- Follow Up
Pharmacy will continue to follow.
Vancomycin Follow UP
- -
Patient Age: 53
Patient Sex: Male
Vancomycin Day #: 3
Indication: Bone And Joint
Requesting Provider: Dr. Santiago / Mj
Pertinent Antimicrobial Allergies:
no pertinent antibiotic allergies
Height / Weight:
Height 5 ft 11 in
Actual Weight 125.9 kg
Pertinent Past Medical History: DM, BMI ~39
- Vital Signs / Lab Results
Temp Pulse Resp BP Pulse Ox
97.8 F 81 17 155/84 95
01/03/24 07:47 01/03/24 07:47 01/03/24 07:47 01/03/24 07:47 01/03/24 07:47
Lab Results - Hematology
01/01/24 01/02/24 01/03/24
10:05 06:03 05:45
WBC 6.6 7.9 8.0
Lab Results - Chemistry
01/01/24 01/01/24 01/02/24
10:05 10:35 06:03
BUN Cancelled 14 17
Creatinine Cancelled 0.8 0.9
Estimated Creat Clear Cancelled > 125
Albumin Cancelled 3.9 3.9
[2024-01-03 12:19] LABS: Glucose - Point of Care 138 mg/dl (70-99)
--- NOTE | 2024-01-03 12:23 | W.PN.UPDATE ---
Update Note
Progress Note Update
Pt seen bedside POD 2 partial 5th met resection and osteomyelitis
Getting tylenol and naprosyn to manage his pain
sutures intact dorsally , , no dehiscence
packing advanced
new gauze compressive dressing applied
Dressing to be changed and packing advanced tomorrow
[2024-01-03] MEDS: TYLENOL 650 MG PO (12:58)
[2024-01-03] MEDS: PT'S OWN INSULIN PUMP - NovoLOG 10 UNIT SC (13:02)
--- NOTE | 2024-01-03 15:10 | W.PN.ID1 ---
Date of Service
Date of Service: January 03, 2024
Today's Communication
Continue Vancomycin and Zosyn pending further data.
Assessment / Plan
# Right 5th metatarsal acute osteo and abscess
# Diabetic foot infection
- Arterial duplex normal YUSUF
- 01/02/24 s/p I+D, resection of 5th metatarsal and proximal phalanx
- Wound cx pending.
- Clean margin bone cx neg at 18-24hr. Path pending.
- Continue Vancomycin and Zosyn for now.
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
DM
Neuropathy
GERD
Erectile dysfunction
Open reduction and internal fixation of R zygoma fracture
Chief Complaint
-: Other (diabetic foot)
Subjective / Review of Systems
no pain.
Vital Signs / Physical Exam
Vital Signs
Vital Signs
Temp Pulse Resp BP Pulse Ox
97.8 F 90 18 159/87 95
01/03/24 07:47 01/03/24 11:42 01/03/24 11:42 01/03/24 11:42 01/03/24 07:47
Physical Exam
Constitutional: No Acute Distress
Gastrointestinal: Soft, Non Tender and Non Distended
Wound: Other (right foot dressing dry)
Objective Data
Lab Data
Lab Results
01/03/24 05:45
01/02/24 06:03
Estimated Creat Clear > 125 ml/min 01/02/24 06:03
Total Bilirubin 0.8 mg/dl (0.2-1.3) 01/02/24 06:03
AST 34 U/L (17-59) 01/02/24 06:03
ALT 30 U/L (0-50) 01/02/24 06:03
Alkaline Phosphatase 90 U/L (38-126) 01/02/24 06:03
Most recent labs reviewed.
Micro Results:
01/02/24 18:40 Anaerobic Culture - Preliminary
Foot - Right Culture pending. Anaerobic cultures are examined after 3
days incubation. Additional information to follow.
01/02/24 18:40 Wound Culture - Preliminary
Foot - Right Gram Stain - Preliminary
01/02/24 18:40 Tissue Culture - Preliminary
Foot - Right No Growth After 18-24 Hours
Gram Stain - Preliminary
01/01/24 XRAY: Findings compatible with acute osteomyelitis of the RIGHT fifth metatarsal head.
12/27/23 MRI LE: ACUTE OSTEOMYELITIS in the distal 5th metatarsal (metatarsal head, neck, and distal shaft) and the base of the proximal phalanx of the 5th toe.
2.0 cm ABSCESS dorsal to the 5th metatarsal head. Ulcer lateral to the 5th metatarsal head.
01/01/24 Arterial study: ABIs and TBIs are within normal limits bilaterally. Arterial duplex examination reveals multiphasic waveforms from the common femoral artery through the popliteal artery bilaterally. There is no focal velocity elevation on
the RIGHT to suggest significant stenosis. A focal velocity elevation is identified on the LEFT at 207 cm/s (ratio 1.9) suggesting a mild stenosis at this location.
[2024-01-03 16:22] LABS: Glucose - Point of Care 128 mg/dl (70-99)
--- NOTE | 2024-01-03 16:32 | CM ---
Patient seen at bedside with physician and residents. Patient stated that he would do research on options provided for infusion and for home health care/wound care. Patient wants daily wound care and CM reviewed options and noted that no VN provides
daily VN care. CM will continue to follow for discharge planning needs.
Plan; home with VN and IV antibiotics pending script.
[2024-01-03] MEDS: APRESOLINE IV ×2 (17:05→21:08)
[2024-01-03] MEDS: PT'S OWN INSULIN PUMP - NovoLOG 15 UNIT SC (19:04)
--- NOTE | 2024-01-03 19:22 | W.PN.UPDATE ---
Update Note
Progress Note Update
pt seen s/p sx. No pain
no f/c/ns
packing advanced
bandages applied
will suggest abx upon dc and vna. Wound need to be packed plain packing daily. Dry bandages on sutures
will need forefoot offloading surgical shoe to bedside
awaiting C&S
--- NOTE | 2024-01-03 19:24 | W.PN.HOSP.TC ---
Addendum entered and electronically signed by Rain Graham MD 01/03/24 20:52:
I saw and evaluated the patient independently. I reviewed the resident�s note and agree with findings and plan as documented by Dr. Pham.
GENERAL: well developed, well nourished, male in no apparent distress
HEENT: NC/AT--no O2 requirements
HEART: regular rate and rhythm, +S1, +S2
LUNGS : clear to auscultation bilaterally
ABDOM: soft, nontender, nondistended, + bowel sounds
EXT: no cyanosis, clubbing, or edema--right foot post op with dressings intact
Acute osteomyelitis of right fifth metatarsal head with 2 cm abscess from diabetic foot ulcer likely caused by neuropathy--ED foot x-ray actually confirms osteo--apprec podiatry--cont vanco/zosyn--apprec ID--await OR cultures (01/02/24)--MRI last
week shows acute osteomyelitis of the distal fifth metatarsal and base of the proximal phalanx of the fifth toe, 2 cm abscess dorsal to the fifth metatarsal head, ulcer lateral to the fifth metatarsal head--apprec vascular--no abnormalities of ABIs
Type 2 diabetes--pt has insulin pump--apprec DM [employer]--Insulin sliding scale
essential HTN?--pt without history and on no meds BUT BP running high--cont standing hydralazine and follow BPs--starting low dose lisinopril
GERD--Continue Protonix
Daily alcohol use--watch for DTs, none seen--BP increased
Occasional smoker
Full code
DVT prophylaxis�heparin
Original Note:
Today's Communication/Plan
-
switch to oral alexx inhibitor
wound care
Assessment / Plan
Assessment / Plan
IMPRESSION
A 53 year old male with PMH of Diabetes and GERD admitted for management of Acute Osteomyelitis involving 5th metatarsal.Debridement done, patient feels good, moving with support.
ASSESSMENT/PROBLEM LIST
Acute Osteomyelitis
Diabetes Mellitus
High blood pressure readings
PLAN
Acute Osteomyelitis
Debridement done
Wound cultures
No growth
Will need IV antibiotics for 4-6 weeks
Continue vancomycin and piperacillin
Diabetes Mellitus
Well controlled Hba1c 6.5
Continue insulin pump
monitor Blood sugar levels
High blood pressure readings
Switch to low dose oral antihypertensive medication
-
Full code
DVT prophylaxis�heparin
Diabetic diet
Anticipated Discharge: 24 - 48 hours
Subjective/Interval History
-
Date of Service: January 03, 2024
No active issues, patient comfortable
Objective Data
-
Vital Signs:
Vital Signs
Temp Pulse Resp BP Pulse Ox
98.8 F 89 16 155/74 97
01/03/24 15:13 01/03/24 15:13 01/03/24 15:13 01/03/24 15:13 01/03/24 15:13
I&O
01/02/24 01/03/24 01/04/24
06:59 06:59 06:59
Intake Total 820 / 820 1100 / 1100 1240 / 1240
Output Total 875 / 875 400 / 400
Balance 820 / 820 225 / 225 840 / 840
Review of Systems
-
All other systems: Reviewed and negative
Physical Exam
-
General: Well Developed, Well Nourished, No Apparent Distress and Comfortable
HEENT: Normocephalic and Atraumatic
Respiratory: Clear to Auscultation
Cardiac: Regular Rhythm and S1/S2
GI: Soft, Nontender and Normal Bowel Sounds
Genito-urinary: No Costovertebral Tender
Musculoskeletal: Edema, Right Lower Extrem (wound at site of debridement )
Skin: Warm and Dry
Neuro: Awake, Alert and Oriented
Hematologic / Lymphatic: No Lymphadenopathy
Psych: Calm
[2024-01-03 21:12] LABS: Glucose - Point of Care 90 mg/dl (70-99)
[2024-01-04] MEDS: PT'S OWN INSULIN PUMP - NovoLOG SC (00:03)
[2024-01-04] MEDS: ZOSYN 50 IV ×3 (00:04→12:28)
[2024-01-04] MEDS: APRESOLINE IV ×2 (00:04→04:00)
[2024-01-04] MEDS: NAPROSYN 500 MG PO ×2 (00:31→08:51)
[2024-01-04 04:15] VITALS: BP 146/92
[2024-01-04] MEDS: FLUSH (NSS) 2 FLUSH IV ×2 (05:56→06:47)
[2024-01-04] MEDS: VANCOCIN 300 ML IV (06:46)
[2024-01-04] MEDS: VANCOCIN 300 MG IV (06:46)
--- NOTE | 2024-01-04 07:48 | PN.DE.MGMTRT ---
Insulin Management
- -
01/04/2024 Diabetes Management Consult Follow up
Patient admitted 12/31 with R foot cellulitis/abscess, osteo r 5th met head/prox phal. PMH GERD, Diabetes for 20 years. Prior to admission patient was using a Tandem tslim x 2 insulin pump with control IQ, Autosoft 90 infusion sets, and DexCom G6.
A1C 6.5%, cr .8, eGFR >60.
Patient is awake alert and oriented resting in bed. POD 2 s/p 5th metatarsal resection. Patient continues with insulin pump, no changes to pump settings.
Glucose range 90 to 138.
Insulin pump settings as follows:
Basal 2.3 per hour all day = 55.2 units of basal insulin
I:CHO ratio 1: 16
Correction factor 1: 14.
Patient is capable of maintaining insulin pump to maintain basal rates and bolus when appropriate. Instructed patient on use of insulin pump bedside worksheet, he is agreeable to fill in doses of insulin he takes.
Will follow.
Diabetes History
- -
Type of Diabetes: 2 requiring insulin
Pre-Admission Diabetes Regimen
Lab Results
Hemoglobin A1c 6.5 % (4.0-5.6) H 01/02/24 06:03
Insulin Pump Settings
IP Diabetes Regimen
01/03/24 01/03/24 01/03/24
12:18 16:20 21:11
POC Glucose 138 H 128 H 90
Meal type: Lunch
Meal type: Breakfast
Amount consumed: 100%
Amount consumed: 100%
Patient Education
[2024-01-04 08:00] VITALS: BP 168/94
[2024-01-04 08:05] LABS: Glucose - Point of Care 90 mg/dl (70-99)
--- NOTE | 2024-01-04 08:25 | W.PN.UPDATE ---
Update Note
Progress Note Update
pt seen at bedside
no pain
no fcns
dressing cdi
C&A pending
cft intact
derm no cellulitis, no pus
no odor
suture intact
a/p s.p 5th met resection right---stable
cont abx per ID
packing pulld and packed
will need abx upon dc and vna
needs offloading surg shoe
stable for dc once all set up and abx upon dc organized
[2024-01-04] MEDS: PROTONIX 40 MG PO (08:32)
[2024-01-04] MEDS: VITAMIN D3 (cholecalciferol) 50 MCG PO (08:32)
[2024-01-04] MEDS: VISBIOME 1 CAP PO (08:32)
[2024-01-04] MEDS: THERAGRAN 1 TABLET PO (08:33)
[2024-01-04] MEDS: ZESTRIL 5 MG PO (08:36)
[2024-01-04] MEDS: PT'S OWN INSULIN PUMP - NovoLOG 11.29 UNIT SC (08:38)
[2024-01-04] MEDS: HEPARIN 5000 UNITS SC ×2 (08:40)
--- NOTE | 2024-01-04 09:45 | W.PN.HOSP.TC ---
Addendum entered and electronically signed by Rain Graham MD 01/04/24 17:45:
I saw and evaluated the patient independently. I reviewed the resident�s note and agree with findings and plan as documented by Dr. Pham.
GENERAL: well developed, well nourished, male in no apparent distress
HEENT: NC/AT--no O2 requirements
HEART: regular rate and rhythm, +S1, +S2
LUNGS : clear to auscultation bilaterally
ABDOM: soft, nontender, nondistended, + bowel sounds
EXT: no cyanosis, clubbing, or edema--right foot post op with dressings intact--using walking and hopping around (NWB to right foot)
Acute osteomyelitis of right fifth metatarsal head with 2 cm abscess from diabetic foot ulcer likely caused by neuropathy--ED foot x-ray actually confirms osteo--apprec podiatry-- vanco/zosyn--apprec ID-- OR cultures (01/02/24) show diphtheroids--MRI
last week shows acute osteomyelitis of the distal fifth metatarsal and base of the proximal phalanx of the fifth toe, 2 cm abscess dorsal to the fifth metatarsal head, ulcer lateral to the fifth metatarsal head--apprec vascular--no abnormalities of
ABIs
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
essential HTN?--pt without history and on no meds BUT BP running high--cont standing hydralazine and follow BPs--starting low dose lisinopril
GERD--Continue Protonix
Daily alcohol use--watch for DTs, none seen--BP increased
Occasional smoker
Full code
DVT prophylaxis�heparin
cleared for d/c by podiatry and ID
Original Note:
Today's Communication/Plan
-
switch to oral antibiotics
discharge
Assessment / Plan
Assessment / Plan
IMPRESSION
A 53 year old male with PMH of Diabetes and GERD admitted for management of Acute Osteomyelitis involving 5th metatarsal.Debridement done, patient feels good, moving with support.
ASSESSMENT/PROBLEM LIST
Acute Osteomyelitis
Diabetes Mellitus
Essential Hypertension
PLAN
Acute Osteomyelitis
Continue on IV antibiotics
Follow anaerobe culture
Clear from [facility]ne[facility] for discharge
Consult ID regarding antibiotics on discharge
Diabetes Mellitus
Continue monitoring blood sugar levels
Essential Hypertension
started low dose oral lisinopril
monitor blood pressure
-
Full code
DVT prophylaxis�heparin
Anticipated Discharge: 24 - 48 hours
Subjective/Interval History
-
Date of Service: January 04, 2024
Patient comfortable,conversant,feels well
Objective Data
-
Vital Signs:
Vital Signs
Temp Pulse Resp BP Pulse Ox
98.1 F 63 20 146/92 97
01/03/24 23:35 01/04/24 04:15 01/04/24 04:15 01/04/24 04:15 01/04/24 04:15
I&O
01/03/24 01/04/24 01/05/24
06:59 06:59 06:59
Intake Total 1100 / 1100 2440 / 2440
Output Total 875 / 875 400 / 400
Balance 225 / 225 2039 / 2039
Review of Systems
-
All other systems: Reviewed and negative
Physical Exam
-
General: Well Developed, Well Nourished, No Apparent Distress and Comfortable
HEENT: Normocephalic and Atraumatic
Respiratory: Clear to Auscultation
Cardiac: Regular Rhythm and S1/S2
GI: Soft, Nontender and Normal Bowel Sounds
Genito-urinary: No Costovertebral Tender
Musculoskeletal: No Clubbing, Edema, Right Lower Extrem and Other (bandage on right foot, plantar surface wound)
Skin: Warm
Neuro: Awake, Alert and Oriented
Hematologic / Lymphatic: No Lymphadenopathy
Psych: Calm
--- NOTE | 2024-01-04 11:10 | PHA.VAN.FU ---
Vancomycin Assessment / Plan
- Assessment
Renal Function: No New Labs Today
WBC's are: WNL
In the past 24 hrs, patient has been: Afebrile
Concomitant Antimicrobials: piperacillin/tazobactam
- Dosing Plan
Continue: Vanc 1500mg Q12H
- Monitoring Plan
Peak Level: 01/03 21:00
Trough Level: 01/04 05:30
Monitoring Comments: levels to be drawn after 6th maintenance dose
- Follow Up
Pharmacy will continue to follow.
Vancomycin Follow UP
- -
Patient Age: 53
Patient Sex: Male
Vancomycin Day #: 4
Indication: [facility]
Requesting Provider: Dr. Santiago / [facility]
Pertinent Antimicrobial Allergies:
no pertinent antibiotic allergies
Height / Weight:
Height 5 ft 11 in
Actual Weight 125.9 kg
Pertinent Past Medical History: DM, BMI ~39
- Vital Signs / Lab Results
Temp Pulse Resp BP Pulse Ox
98.0 F 65 18 168/94 98
01/04/24 08:00 01/04/24 08:00 01/04/24 08:00 01/04/24 08:00 01/04/24 08:00
Lab Results - Hematology
01/02/24 01/03/24
06:03 05:45
WBC 7.9 8.0
Lab Results - Chemistry
01/02/24
06:03
BUN 17
Creatinine 0.9
Estimated Creat Clear > 125
Albumin 3.9
Microbiology Results
01/02/24 18:40 Anaerobic Culture - Preliminary
Foot - Right Culture pending. Anaerobic cultures are examined after 3
days incubation. Additional information to follow.
01/02/24 18:40 Wound Culture - Preliminary
Foot - Right Gram Stain - Preliminary
01/02/24 18:40 Tissue Culture - Preliminary
Foot - Right No Growth After 18-24 Hours
Gram Stain - Preliminary
--- NOTE | 2024-01-04 11:33 | W.PN.ID1 ---
Addendum entered and electronically signed by Sherly Barker MD 01/04/24 15:46:
Tissue and wound cx diphtheroids -> often considered contaminants.
Can dc Zosyn. Continue Vanco. At time of discharge, transition to po cefuroxime as below.
Will follow clinically as outpt. Will follow bone path as outpt.
Original Note:
Date of Service
Date of Service: January 04, 2024
Today's Communication
-Suspect surgical cure
- Transition Vancomycin and Zosyn to cefuroxime 500mg po bid x 2 weeks.
- If bone path + osteo at clean margin, will arrange for IV abx as oupt.
- Follow up with me in 1 to 2 weeks.
Assessment / Plan
# Right 5th metatarsal acute osteo and abscess
# Diabetic foot infection
- Arterial duplex normal YUSUF
- 01/02/24 s/p I+D, resection of 5th metatarsal and proximal phalanx
- Wound cx pending.
- Clean margin bone cx neg >24hr. Path pending.
-Suspect surgical cure
- Transition Vancomycin and Zosyn to cefuroxime 500mg po bid x 2 weeks.
- If bone path + osteo at clean margin, will arrange for IV abx as oupt.
- Follow up with me in 1 to 2 weeks.
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
DM
Neuropathy
GERD
Erectile dysfunction
Open reduction and internal fixation of R zygoma fracture
Chief Complaint
-: Other (diabetic foot)
Subjective / Review of Systems
Eager to goo home.
Vital Signs / Physical Exam
Vital Signs
Vital Signs
Temp Pulse Resp BP Pulse Ox
98.0 F 65 18 168/94 98
01/04/24 08:00 01/04/24 08:00 01/04/24 08:00 01/04/24 08:00 01/04/24 08:00
Physical Exam
Constitutional: No Acute Distress and Comfortable
Cardiovascular: Regular Rate and S1/S2
Gastrointestinal: Soft and Non Tender
Wound: Other (Right foot dressing dry)
Objective Data
Lab Data
Lab Results
01/03/24 05:45
01/02/24 06:03
Estimated Creat Clear > 125 ml/min 01/02/24 06:03
Total Bilirubin 0.8 mg/dl (0.2-1.3) 01/02/24 06:03
AST 34 U/L (17-59) 01/02/24 06:03
ALT 30 U/L (0-50) 01/02/24 06:03
Alkaline Phosphatase 90 U/L (38-126) 01/02/24 06:03
Most recent labs reviewed.
Micro Results:
01/02/24 18:40 Tissue Culture - Preliminary
Foot - Right No Growth After 18-24 Hours
Gram Stain - Preliminary
01/02/24 18:40 Wound Culture - Preliminary
Foot - Right Gram Stain - Preliminary
01/02/24 18:40 Anaerobic Culture - Preliminary
Foot - Right Culture pending. Anaerobic cultures are examined after 3
days incubation. Additional information to follow.
01/01/24 XRAY: Findings compatible with acute osteomyelitis of the RIGHT fifth metatarsal head.
12/27/23 MRI LE: ACUTE OSTEOMYELITIS in the distal 5th metatarsal (metatarsal head, neck, and distal shaft) and the base of the proximal phalanx of the 5th toe.
2.0 cm ABSCESS dorsal to the 5th metatarsal head. Ulcer lateral to the 5th metatarsal head.
01/01/24 Arterial study: ABIs and TBIs are within normal limits bilaterally. Arterial duplex examination reveals multiphasic waveforms from the common femoral artery through the popliteal artery bilaterally. There is no focal velocity elevation on
the RIGHT to suggest significant stenosis. A focal velocity elevation is identified on the LEFT at 207 cm/s (ratio 1.9) suggesting a mild stenosis at this location.
Care Review
Plan reviewed with: Physician (Dr. Graham)
--- NOTE | 2024-01-04 11:44 | CM ---
Patient seen at bedside with physician. Patient requested [facility], liaison updated. Patient for po antibiotics and awaiting a shoe from [facility] and sarah script placed on chart. CM will continue to follow for discharge needs.
Plan; home with [facility] pending assessment
[2024-01-04 11:47] LABS: Glucose - Point of Care 85 mg/dl (70-99)
--- NOTE | 2024-01-04 12:01 | W.DCSUMMARY ---
Addendum entered and electronically signed by Rain Graham MD 01/04/24 16:13:
Read, reviewed, and agree. See same day progress note for additional details. Time spent coordinating care, DC planning, review of DC plan of care with resident, transition of care, review of records in EMR, med rec, consults, notes, d/w
consultants, nursing, family, and CM=35 minutes.
Patient was admitted and had incision and drainage on 01/02/2024. He has been seen by both infectious disease and podiatry. He has been cleared for discharge by both. He is nonweightbearing to the right foot and should be having a special surgical
shoe/boot from [facility], but they cannot deliver the shoe. They actually told patient to order on [employer] which he did and that it would not be delivered until Monday. This should not impact his discharge as he should be nonweightbearing to the
right foot regardless. Prescription for rolling walker was given to the patient. He was set up for VN. He will be discharged on oral antibiotics as per ID with follow-up in the office with podiatry and ID as directed.
Time for discharge 33 minutes.
Original Note:
Discharge Summary
Discharge Data
Date of Admission: 01/01/24
Date of Discharge: 01/04/24
-
Pending Results: No
Hospital Course
Discharging Physician :
Principal Discharge diagnosis : Acute Osteomyelitis of right 5th metatarsal/ essential hypertension
Chronic Discharge diagnosis :
Diabetes for 20 years
Hospital Course :
Patient ia a 53-year-old male past medical history of diabetes, GERD who had an ulcer on the plantar surface of his right fifth toe. This had been causing him some discomfort and swelling for which he had seen Dr. Daniela Amezc[facility] [place] who had been performing local wound care. Due to impaired wound healing he had an MRI performed last week showing soft tissue abscess as well as osteomyelitis of the fifth metatarsal. He was admitted on jan 02, 2024 for
debridement. he was given iv zosyn and vancomycin for 3 days. He started to walk around with support and felt well. His wound cultures showed diptheroids. His anaerobe wound culture is pending.
Important imaging findings :
Extremity arterial study
ABIs and TBIs are within normal limits bilaterally. Arterial duplex examination reveals multiphasic waveforms from the common femoral artery through the popliteal artery bilaterally.
Lower extremity MRI
Procedure findings :
PROCEDURES:
1. I and D of the right foot.
2. Fifth metatarsal resection.
3. Resection of the proximal phalanx fifth toe right foot
Discharge Plan
-
Patient Disposition: Home with Home Care
Discharge Diagnosis/Procedures: Acute Osteomyelitis
Condition: Good
Diet: As tolerated
Activity: Do not bear weight R leg
Driving Restrictions: No driving
Bathing Restrictions: as per podiatry
Other Services: VN
Referrals:
Jorge Renner DO [Family Provider] - in less than 1 week
Kelsea Kim CRNP [Specified Professional Personl] - 01/31/24 9:45 am (Vascular surgery office follow-up)
Sherly Braker MD [Active] - in one to two weeks
Prescriptions:
New
lisinopril 5 mg Tablet
5 mg PO DAILY 30 Days Qty: 30 0RF
cefuroxime axetil 500 mg tablet
500 mg PO BID Qty: 28 0RF
Continued
therapeutic multivitamin Tablet
1 tab PO DAILY
sildenafil 100 mg Tablet
100 mg PO DAILYPRN PRN (Reason: ed)
insulin aspart U-100 [Novolog U-100 Insulin aspart] 100 unit/mL Solution
1 sliding scale dose SC DIRECTED
Patient Comments:
01/01/24: Patient uses own insulin pump
pantoprazole 40 mg Tablet,Delayed Release (Dr/Ec)
40 mg PO DAILY
naproxen sodium [Aleve] 220 mg Tablet
440 mg PO BIDPRN PRN (Reason: mild pain)
azelastine 137 mcg (0.1 %) [place],Non-Aerosol
1 spray INTRANASAL DAILY
Visbiome 112.5 billion cell Capsule
1 cap PO DAILY
cholecalciferol (vitamin D3) [Vitamin D3] 50 mcg (2,000 unit) Tablet
50 mcg PO DAILY
turmeric 400 mg Capsule
400 mg PO DAILY
Discontinued
clindamycin HCl 300 mg Capsule
300 mg PO Q6H
Patient Comments:
01/01/24: filled 12/29/23, to take for 14 days
Discharge Orders:
Discharge Patient (As Directed); Ordered 01/04/24
Ordered By: Nguyen Pham
Discharge Date and Time
Print Language: BULGARIAN
[2024-01-04] MEDS: PT'S OWN INSULIN PUMP - NovoLOG 10.93 UNIT SC (12:27)
--- NOTE | 2024-01-04 12:27 | VNURNOTE ---
Home Health Liaison met with patient at bedside to discuss [facility] nurse/therapy, visits, schedule and homebound status. Patient is agreeable and understands that visits at home will be 2-3 x per week to assess wound, provide wound care, and teach
medical management. [facility] brochure provided with contact information. Patient is aware that [facility] will contact them for start of care in 1 day after discharge from .
[facility] referral completed in [facility]. Instructed to bring wound care supplies home with him from his hosp room.
--- NOTE | 2024-01-04 13:25 | PTCARENOTE ---
patient medicated with PRN Naproxyn this am for c/o right foot pain with good relief. tolerating diet, right foot dressing c/d/i, vss, for discharge to day to home.
--- NOTE | 2024-01-04 18:18 | PTCARENOTE ---
pt ordered off loading shoe from [employer]. [facility] talked with patient as they can't come deliver special shoe until tomorrow.
== END 2024-01-04 18:10 | disposition home health service (06) | DRG 629 ==
LOC: 3 WEST ACU 12:45
PROVIDERS: Physician Assistant; ADMITTING PHYSICIAN Hospitalist; ATTENDING PHYSICIAN Internal Medicine; CONSULT PHYSICIAN Podiatrist Foot Surgery; CONSULT PHYSICIAN Surgery Vascular Surgery; EMERGENCY PHYSICIAN Emergency Medicine; FAMILY PHYSICIAN Family Medicine; OTHER PHYSICIAN Internal Medicine Infectious Disease
PROC: 0ST Lower Joints, Resection (ICD-10-PCS; 2024-01-02)
PROC: 0QBQ0ZZ Excision of Right Toe Phalanx, Open Approach (ICD-10-PCS; 2024-01-02)
DX: E11.69 Type 2 diabetes mellitus with other specified complication (principal); L02.611 Cutaneous abscess of right foot; M86.171 Other acute osteomyelitis, right ankle and foot; L03.115 Cellulitis of right lower limb; M84.477A Pathological fracture, right toe(s), initial encounter for fracture; E11.42 Type 2 diabetes mellitus with diabetic polyneuropathy; E11.621 Type 2 diabetes mellitus with foot ulcer; I10 Essential (primary) hypertension; L97.519 Non-pressure chronic ulcer of other part of right foot with unspecified severity; K21.9 Gastro-esophageal reflux disease without esophagitis; N52.9 Male erectile dysfunction, unspecified; F17.210 Nicotine dependence, cigarettes, uncomplicated; F10.90 Alcohol use, unspecified, uncomplicated; Z79.4 Long term (current) use of insulin; Z79.899 Other long term (current) drug therapy; Z87.81 Personal history of (healed) traumatic fracture; Z91.040 Latex allergy status
CPT/HCPCS: 88304; 88311; 73630; 80053; 82962; 83036; 83735; 85025; 87070; 87075; 87176; 87205; 93922; 93925; 96365; 96366; 96375; 97163; 99285; 99406